=== PATIENT | female | born 1960 | race Two or more races ===

== ENCOUNTER 2023-09-17 07:47 | Emergency (ER) | payer MEDICAID ==
[~2023-09-17] VITALS: Ht 162.6 cm; Wt 68.7 kg
[2023-09-17] MEDS ORDERED: ACET-1080 PO (08:25)
[2023-09-17 08:26] VITALS: BP 128/87; PULSE 92; RESP 18; O2SAT 96
== END 2023-09-17 08:37 | disposition home or self-care (01) ==
LOC: ER 07:47
DX: S00.83XA Contusion of other part of head, initial encounter (principal); I11.0 Hypertensive heart disease with heart failure; I50.9 Heart failure, unspecified; E11.9 Type 2 diabetes mellitus without complications; W18.00XA Striking against unspecified object with subsequent fall, initial encounter; Y93.89 Activity, other specified; Y92.89 Other specified places as the place of occurrence of the external cause; Y99.8 Other external cause status